=== PATIENT | female | born 1985 | race Caucasian/White ===

== ENCOUNTER 2018-03-03 23:44 | Emergency (ER) | payer OTHER ==
[~2018-03-03] VITALS: Ht 172.7 cm; Wt 74.8 kg
[2018-03-04] MEDS ORDERED: AUGMENTIN 875-1 EACH PO (00:38)
--- NOTE | 2018-03-04 00:38 | ED ANIMAL BITE/WOUND CHECK ---
History of Present Illness General Chief Complaint: Animal/Insect Bite Stated Complaint: PT C/C DOG BITE WHILE AT WORK DOG UP TO DATE Source: patient Exam Limitations: no limitations Vital Signs & Intake/Output Vital Signs & Intake/Output ED Intake and Output 03/05 0000 03/04 1200 Intake Total 0 Output Total Balance 0 Intake, Oral 0 Patient 165 lb Weight Weight Reported by Patient Measurement Method Allergies Coded Allergies: Sulfa (Sulfonamide Antibiotics) (GI UPSET, FLUSHED FACE 03/04/18) Reconcile Medications Amoxicillin/Potassium Clav (Augmentin 875-125 Tablet) 875 MG-125 MG TABLET 1 TAB PO BID DOG BITE Triage Nurses Notes Reviewed? yes Onset: Abrupt Duration: day(s): Timing: recent history Injury Environment: home Is Injury an Animal Bite? Yes Animal Type: dog No Modifying Factors: none HPI: 32-year-old female comes into the emergency room for further evaluation of dog bite to left middle finger. This occurred at work. 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 Dog is up-to-date on its rabies vaccine. She is uncertain on her tetanus vaccine. Associated bleeding. Mild throbbing pain. Comes in for further evaluation. (Neri Rodriguez) Past History Travel History Traveled to [place] past 21 day No Medical History Any Pertinent Medical History? none Surgical History Surgical History: non-contributory Family History Hx Contributory? No (Neri Rodriguez) Review of Systems Review of Systems Constitutional: Reports: no symptoms. EENTM: Reports: no symptoms. Respiratory: Reports: no symptoms. Cardiovascular: Reports: no symptoms. GI: Reports: no symptoms. Genitourinary: Reports: no symptoms. Musculoskeletal: Reports: see HPI. Skin: Reports: see HPI. Neurological/Psychological: Reports: no symptoms. Hematologic/Endocrine: Reports: no symptoms. Immunologic/Allergic: Reports: no symptoms. All Other Systems: Reviewed and Negative (Neri Rodriguez) Physical Exam Physical Exam General Appearance: well developed/nourished, mild distress Head: atraumatic Eyes: Bilateral: normal appearance, EOMI. 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 Patient was placed in a finger splint. Confirmed tetanus shot. Follow-up with occupational medicine. Return if any other concerns. The dog is up-to-date on its rabies vaccines. I called the patient on the phone to tell her that she needs to confirm her tetanus shot is up-to-date. If it does not she should return for tetanus shot. (Neri Rodriguez) Departure Departure Disposition: HOME OR SELF CARE Condition: Stable Clinical Impression Primary Impression: Dog bite of finger Referrals: Unknown (PCP/Family) Additional Instructions: Change dressing every other day. Watch for signs of infection such as redness swelling discharge fever chills. Take Augmentin as prescribed. Please go over all results of today's visit with your primary care doctor. Contact your primary care doctor to let them know you were here in the emergency room. There may be nonspecific findings which may not be related to your visit today here in the emergency room but may require further evaluation and chronic monitoring by your primary care doctor. If you had a laceration today the chance of foreign body always remains. You should follow-up with your primary care doctor for recheck in 3-5 days for a wound check. If you had an x-ray done there is a chance that a fracture could have been missed on initial read and you should follow-up with your primary care doctor for repeat x-rays if symptoms persist. If your blood pressure was elevated here in the emergency room please have rechecked by [facility] primary care doctor within the next 48. If you were prescribed a narcotic here in the emergency room or any type of controlled substances you're not allowed to drive while taking this medication or operate any type of heavy machinery. Narcotics can make you feel lightheaded dizziness nausea and can cause constipation. You may need to picking supervisor a stool softener. Thank you for choosing [facility] emergency room. Please return to the emergency room immediately if you have any other concerns worsening of symptoms. Departure Forms: Customer Survey General Discharge Information Prescriptions: Current Visit Scripts Amoxicillin/Potassium Clav (Augmentin 875-125 Tablet) 1 TAB PO BID #14 TAB (Neri Rodriguez) PA/STEAM FITTER Co-Sign Statement Statement: ED Attending supervision documentation- [] I saw and evaluated the patient. I have also reviewed all the pertinent lab results and diagnostic results. I agree with the findings and the plan of care as documented in the PA's/STEAM FITTER's documentation. [x] I have reviewed the ED Record and agree with the PA's/STEAM FITTER's documentation. [] Additions or exceptions (if any) to the PAs/STEAM FITTER's note and plan are summarized below: [] (Bk SEALS,Kyree Archer)
[2018-03-04 00:42] VITALS: BP 111/78
== END 2018-03-04 01:10 ==
LOC: ERH 23:44
DX: S61.251A Open bite of left index finger without damage to nail, initial encounter (principal); W54.0XXA Bitten by dog, initial encounter; Y92.89 Other specified places as the place of occurrence of the external cause; Y93.89 Activity, other specified

== ENCOUNTER 2018-03-07 09:12 | Emergency (ER) | payer OTHER ==
[~2018-03-07] VITALS: Ht 172.7 cm; Wt 74.4 kg
[~2018-03-07 09:12] MED LIST: AUGMENTIN 875-1 EACH PO
[2018-03-07 09:18] VITALS: BP 141/90
--- NOTE | 2018-03-07 09:23 | ED ANIMAL BITE/WOUND CHECK ---
History of Present Illness General Chief Complaint: Suture Removal/Wound Recheck Stated Complaint: WOUND CHECK, TETNUS BOOSTER? WORK RELATED INJURY Source: patient Exam Limitations: no limitations Vital Signs & Intake/Output Vital Signs & Intake/Output Vital Signs Date Time Temp Pulse Resp B/P B/P Pulse O2 O2 Flow FiO2 Mean Ox Delivery Rate 03/07 0918 98.4 96 20 141/90 97 Room Air Allergies Coded Allergies: Sulfa (Sulfonamide Antibiotics) (GI UPSET, FLUSHED FACE 03/04/18) Reconcile Medications Amoxicillin/Potassium Clav (Augmentin 875-125 Tablet) 875 MG-125 MG TABLET 1 TAB PO BID DOG BITE Triage Note: PT TO ED FOR WOUND CHECK TO LEFT HAND MIDDLE FINGER. LAST TETANUS 2011. Triage Nurses Notes Reviewed? yes Onset: Abrupt Duration: day(s):, constant Timing: recent history Injury Environment: home Is Injury an Animal Bite? No No Modifying Factors: none : No Patient currently breastfeeds: No HPI: 32-year-old female comes into the emergency room for further evaluation of wound check to left hand. Patient was seen here the other day for dog bite. Last tetanus shot was confirmed to be 2011. Patient reports that she found out the dog is about 2 months behind its rabies booster. Dog has gotten its rabies booster on a regular basis but is 2 months behind. Dog was acting appropriate. Denies any fever chills redness discharge or any other concerns. (Neri Rodriguez) Past History Travel History Traveled to [place] past 21 day No Medical History Any Pertinent Medical History? none EENT: allergies Respiratory: asthma Surgical History Surgical History: non-contributory Psychosocial History What is your primary language Vietnamese Tobacco Use: Never used ETOH Use: occasional use Illicit Drug Use: denies illicit drug use Family History Hx Contributory? No (Neri Rodriguez) Review of Systems Review of Systems Constitutional: Reports: no symptoms. EENTM: Reports: no symptoms. Respiratory: Reports: no symptoms. Cardiovascular: Reports: no symptoms. GI: Reports: no symptoms. Genitourinary: Reports: no symptoms. Musculoskeletal: Reports: no symptoms. Skin: Reports: see HPI. Neurological/Psychological: Reports: no symptoms. Hematologic/Endocrine: Reports: no symptoms. Immunologic/Allergic: Reports: no symptoms. All Other Systems: Reviewed and Negative (Neri Rodriguez) Physical Exam Physical Exam General Appearance: well developed/nourished, mild distress Head: atraumatic Eyes: Bilateral: normal appearance. Ears, Nose, Throat: normal ENT inspection, hearing grossly normal Neck: normal inspection Respiratory: no respiratory distress Back: normal inspection Extremities: normal range of motion Neurologic/Psych: awake, alert, oriented x 3, normal mood/affect Skin: intact, normal color, warm/dry (Neri Rodriguez) Progress Differential Diagnosis: abscess, cellulitis, joint infection, tenosysnovitis Plan of Care: 03/07/2018 9:48:49 AM Rabies vaccine is not indicated at this time. The dog was acting appropriately. The dog was slightly behind in his immunizations schedule but has been vaccinated previously. No signs of infection. Return if any concerns. Follow- up with occupational medicine. (Neri Rodriguez) Departure Departure Disposition: HOME OR SELF CARE Condition: Stable Clinical Impression Primary Impression: Encounter for wound re-check Referrals: Patient Has No Primary Care Dr (PCP/Family) Additional Instructions: Continue to monitor for signs of infection such as redness or discharge fever chills. Return if any other concerns. Please go over all results of today's visit with your primary care doctor. Contact your primary care doctor to let them know you were here in the emergency room. There may be nonspecific findings which may not be related to your visit today here in the emergency room but may require further evaluation and chronic monitoring by your primary care doctor. If you had a laceration today the chance of foreign body always remains. You should follow-up with your primary care doctor for recheck in 3-5 days for a wound check. If you had an x-ray done there is a chance that a fracture could have been missed on initial read and you should follow-up with your primary care doctor for repeat x-rays if symptoms persist. If your blood pressure was elevated here in the emergency room please have rechecked by [facility] primary care doctor within the next 48. If you were prescribed a narcotic here in the emergency room or any type of controlled substances you're not allowed to drive while taking this medication or operate any type of heavy machinery. Narcotics can make you feel lightheaded dizziness nausea and can cause constipation. You may need to molded goods spot picker a stool softener. Thank you for choosing [facility] emergency room. Please return to the emergency room immediately if you have any other concerns worsening of symptoms. Departure Forms: Customer Survey General Discharge Information (Neri Rodriguez) PA/SLUG PRESS OPERATOR Co-Sign Statement Statement: ED Attending supervision documentation- [] I saw and evaluated the patient. I have also reviewed all the pertinent lab results and diagnostic results. I agree with the findings and the plan of care as documented in the PA's/SLUG PRESS OPERATOR's documentation. [X] I have reviewed the ED Record and agree with the PA's/SLUG PRESS OPERATOR's documentation. [] Additions or exceptions (if any) to the PAs/SLUG PRESS OPERATOR's note and plan are summarized below: [] (Juliana SEALS,Dev Haile)
== END 2018-03-07 09:43 ==
LOC: ERH 09:12
DX: Z48.00 Encounter for change or removal of nonsurgical wound dressing (principal)